=== PATIENT | female | born 1990 | race Caucasian/White ===

== ENCOUNTER 2017-02-10 11:58 | Inpatient (IN) | payer BC ==
[2017-02-10] MEDS ORDERED: Bupivacaine 0.25% 10 ML SDV ONE (12:00)
[2017-02-10] MEDS ORDERED: Sodium Chloride 0.9% 10 ML Syringe FLUSH PRN (12:33)
[2017-02-10] MEDS ORDERED: Nalbuphine 20 MG/1 ML Amp IVPUSH PRN (12:33)
[2017-02-10] MEDS ORDERED: Ondansetron 4 MG/2 ML SDV IVPUSH PRN ×2 (12:33→14:28)
--- NOTE | 2017-02-10 12:37 | PCM.LDHP ---
L&D History of Present Illness - General Date of Service: 02/10/17 Admit Problem/Dx: Patient Status Order with Admit Dx/Problem 02/10/17 12:33 Patient Status [ADT] Routine Admission Diagnosis/Problem Admission Diagnosis/Problem Normal Source of Information: Patient History Limitations: Reports: No Limitations - History of Present Illness Introduction:: Patient is a 26 y/o at 38 6/7 wks who presents in labor. Contractions started earlier today. Slowly increasing in intensity. No LOF or VB. 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 12/2014 - Twin gestation. Demise of female twin at 28 weeks, known to be anomolous. Carried till 38 weeks and delivered viable male twin. 01/2017 - Current - Past Surgical History HEENT Surgical History: Reports: Other (See Below) (oral surgery) Social & Family History - Tobacco Use Smoking Status *Q: Never Smoker - Alcohol Use Alcohol Use History: No - Recreational Drug Use Recreational Drug Use: No H&P Review of Systems - Review of Systems: Review Of Systems: See Below General: Reports: No Symptoms Pulmonary: Reports: No Symptoms Cardiovascular: Reports: No Symptoms Gastrointestinal: Reports: Abdominal Pain Genitourinary: Reports: No Symptoms Musculoskeletal: Reports: No Symptoms Neurological: Reports: No Symptoms L&D Exam - Exam Exam: See Below - OB Specific Contraction Intensity: Moderate Movement: Active Heart Tones: Present Heart Tones per Min: 140 Heart Rate (FHR) Variability: Moderate (6-25 bmp) Presentation: Vertex - Greco Score Greco Score Cervix Position: Anterior Greco Score Consistency: Soft Greco Score Effacement: >80% Greco Score Dilation: > 5 cm Greco Score Infant's Station: -2 Greco Score Total: 11 - Exam General: Alert, Oriented, Cooperative Lungs: Clear to Auscultation, Normal Respiratory Effort Cardiovascular: Regular Rate, Regular Rhythm GI/Abdominal Exam: Soft, Non-Tender Genitourinary: Normal external exam Extremities: Normal Inspection Skin: Warm, Dry, Intact - Patient Data Result Diagrams: 02/10/17 12:40 - Problem List (1) 38 weeks gestation of SNOMED Code(s): 92095247 ICD Code: Z3A.38 - 38 WEEKS GESTATION OF Status: Acute Current Visit: Yes (2) GBS (group B Streptococcus carrier), +RV culture, currently SNOMED Code(s): 42925390 ICD Code: O99.820 - STREPTOCOCCUS B CARRIER STATE COMPLICATING Status: Acute Current Visit: Yes (3) Normal labor SNOMED Code(s): 20583547 ICD Code: O80 - ENCOUNTER FOR FULL-TERM UNCOMPLICATED DELIVERY; Z37.9 - OUTCOME OF DELIVERY, UNSPECIFIED Status: Acute Current Visit: Yes Problem List Initiated/Reviewed/Updated: Yes Orders Last 24hrs: Active Orders 24 hr Category Date Time Status Patient Status [ADT] Routine ADT 02/10/17 12:33 Ordered Activity as Tolerated [RC] PFP Care 02/10/17 12:33 Ordered Communication Order [RC] ASDIRECTED Care 02/10/17 12:33 Ordered Heart Tones [RC] ASDIRECTED Care 02/10/17 12:34 Ordered Notify Provider [RC] PFP Care 02/10/17 12:33 Ordered Notify Provider [RC] PRN Care 02/10/17 12:33 Ordered Peripheral IV Care [RC] . DIRECTED Care 02/10/17 12:34 Ordered Vital Signs [RC] PER UNIT ROUTINE Care 02/10/17 12:33 Ordered Regular Diet [DIET] Diet 02/10/17 Lunch Ordered CBC W/O DIFF,HEMOGRAM [HEME] Routine Lab 02/10/17 12:33 Ordered TYPE AND SCREEN [BBK] Routine Lab 02/10/17 12:33 Ordered Ampicillin 1 gm Med 02/10/17 12:45 Ordered Sodium Chloride 0.9% [Normal Saline] 100 ml IV Q4H Ampicillin 2 gm Med 02/10/17 12:33 Ordered Sodium Chloride 0.9% [Normal Saline] 100 ml IV ONETIME Lactated Ringers [Ringers, Lactated] 1,000 ml Med 02/10/17 12:45 Ordered IV ASDIRECTED Nalbuphine [Nubain] Med 02/10/17 12:33 Ordered 10 mg IVPUSH Q2H PRN Ondansetron [Zofran] Med 02/10/17 12:33 Ordered 4 mg IVPUSH Q4H PRN Oxytocin/Lactated Ringers [Pitocin in LR 10 Units/1,000 Med 02/10/17 12:45 Ordered ML] 10 unit in 1,000 ml IV .CONTINUOUS Sodium Chloride 0.9% [Saline Flush] Med 02/10/17 12:33 Ordered 10 ml FLUSH ASDIRECTED PRN Electronic Heart Tones Ext w TOCO [WOMSER] Ot 02/10/17 12:33 Ordered Routine Electronic Heart Tones Internal [WOMSER] Per Unit Ot 02/10/17 12:33 Ordered Routine Peripheral IV Insertion Adult [OM.PC] Routine Oth 02/10/17 12:33 Ordered Resuscitation Status Routine Resus Stat 02/10/17 12:33 Ordered Assessment/Plan Comment:: 26 y/o at 38 6/7 wks presents in labor * CBC and T&S * GBS positive, will start ampicillin * Pain management per patient preference * Anticipate
[2017-02-10] MEDS ORDERED: Oxytocin/Lactated Ringers 10 UNIT/1,000 ML BAG IV SCH (12:45)
[2017-02-10] MEDS: Lactated Ringers 1,000 ML IV SCH ×2 (13:05→15:31)
[2017-02-10] MEDS ORDERED: Ampicillin 2 GM in Sodium Chloride 0.9% 100 ML IV ONE (13:15)
[2017-02-10] MEDS ORDERED: ePHEDrine 50 MG/ML SDV IVPUSH PRN (14:28)
[2017-02-10] MEDS ORDERED: fentaNYL 100 MCG/2 ML SDV EPIDUR PRN (14:28)
[2017-02-10] MEDS ORDERED: Bupivacaine/fentaNYL/NS 100 ML Bag EPIDUR SCH (14:30)
--- NOTE | 2017-02-10 14:33 | PCM.PREANE ---
Preanesthetic Assessment - Anesthesia/Transfusion/Family Hx Anesthesia History: No Prior Anesthesia Family History of Anesthesia Reaction: No Transfusion History: No Prior Transfusion(s) Intubation History: Unknown - Review of Systems General: No Symptoms Pulmonary: No Symptoms Cardiovascular: No Symptoms Gastrointestinal: No Symptoms Neurological: No Symptoms Other: Reports: None - Physical Assessment NPO Status Date: 02/10/17 NPO Status Time: 13:00 Pulse: 95 O2 Sat by Pulse Oximetry: 97 Respiratory Rate: 18 Blood Pressure: 120/76 Temperature: 36.6 C Vital Signs: Last Vital Signs Temp 36.6 C 02/10/17 12:33 Pulse 95 02/10/17 12:33 Resp 18 02/10/17 12:33 BP 120/76 02/10/17 12:33 Pulse Ox 97 02/10/17 12:33 Height: 1.65 m Weight: 74.843 kg ASA Class: 2 Mental Status: Alert & Oriented x3 Airway Class: Mallampati = 2 Dentition: Reports: Normal Dentition, Caries Thyro-Mental Finger Breadths: 3 Mouth Opening Finger Breadths: 3 Lungs: Clear to Auscultation, Normal Respiratory Effort Cardiovascular: Regular Rate, Regular Rhythm, No Murmurs - Lab Values: Laboratory Last Values WBC 14.02 K/mm3 (3.98-10.04) H 02/10/17 12:40 RBC 4.65 M/mm3 (3.98-5.22) 02/10/17 12:40 Hgb 14.6 gm/L (11.2-15.7) 02/10/17 12:40 Hct 41.4 % (34.1-44.9) 02/10/17 12:40 MCV 89.0 fl (79.4-94.8) 02/10/17 12:40 MCH 31.4 pg (25.6-32.2) 02/10/17 12:40 MCHC 35.3 g/dl (32.2-35.5) 02/10/17 12:40 RDW Std Deviation 41.4 fL (36.4-46.3) 02/10/17 12:40 Plt Count 173 K/mm3 (182-369) L 02/10/17 12:40 MPV 10.4 fl (9.4-12.3) 02/10/17 12:40 Blood Type AB POSITIVE 02/10/17 12:40 Above labs reviewed and noted. 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: - CURRENT (IN HOUSE) MEDS Current Meds: Current Medications Ephedrine Sulfate (Ephedrine Sulfate) 5 mg IVPUSH ASDIRECTED PRN PRN Reason: Hypotension Fentanyl (Sublimaze) 100 mcg EPIDUR Q3H PRN PRN Reason: Pain Fentanyl/Bupivacaine HCl (Fentanyl/Bupivacaine/Ns 2 Mcg-0.125% 100 Ml) 100 ml EPIDUR ASDIRECTED [facility] Ampicillin Sodium 1 gm/ Sodium (Chloride) 100 mls @ 200 mls/hr IV Q4H P[facility]A Lactated Ringer's (Ringers, Lactated) 1,000 mls @ 100 mls/hr IV ASDIRECTED P[facility]ELA Last Admin: 02/10/17 13:05 Dose: 100 mls/hr Oxytocin/Lactated Ringer's (Pitocin In Lr 10 Units/1,000 Ml) 10 unit in 1,000 mls @ 500 mls/hr IV .CONTINUOUS P[facility]A Nalbuphine HCl (Nubain) 10 mg IVPUSH Q2H PRN PRN Reason: Pain (moderate 4-6) Ondansetron HCl (Zofran) 4 mg IVPUSH Q4H PRN PRN Reason: Nausea/Vomiting Ondansetron HCl (Zofran) 4 mg IVPUSH ONETIME PRN PRN Reason: Nausea/Vomiting Sodium Chloride (Saline Flush) 10 ml FLUSH ASDIRECTED PRN PRN Reason: Keep Vein Open Discontinued Medications Ampicillin Sodium 2 gm/ Sodium (Chloride) 100 mls @ 200 mls/hr IV ONETIME ONE Stop: 02/10/17 13:44 Last Admin: 02/10/17 13:06 Dose: 200 mls/hr
[2017-02-10] MEDS ORDERED: Ampicillin 1 GM in Sodium Chloride 0.9% 100 ML IV SCH (17:15)
--- NOTE | 2017-02-10 18:50 | PCM.DEL ---
L & D Note - General Info Date of Service: 02/10/17 - Delivery Note Labor: Spontaneous Delivery Outcome: Livebirth Delivery Method: Spontaneous Vaginal Delivery-Single Delivery Mode: Spontaneous Presentation: Right Occiput Anterior (PEDRO) Nuchal Cord: None Anesthesia Type: Epidural Amniotic Fluid Description: Clear Episiotomy Type: None Laceration: None Placenta: Intact, Spontaneous Cord: 3 Vessels Estimated Blood Loss: 250 Resuscitation Needed: Yes [place]: Bulb Syringe, Stimulated, Warmed, [place] Used, Warmer Used Score 1 min: 8 Score 5 min: 9 Delivery Comments (Free Text/Narrative):: Patient found to be complete and began pushing. With maternal pushing effort head delivered from an PEDRO presentation. No nuchal cord present. With gentle downward traction the shoulder and body delivered. Infant placed on maternal abdomen. Cord clamped and cut. Cord blood obtained. Placenta allowed time to separate. Inspection of the perineum showed no lacerations. - Patient Data Vitals - Most Recent: Last Vital Signs Temp 36.6 C 02/10/17 15:09 Pulse 95 02/10/17 15:09 Resp 18 02/10/17 15:09 BP 120/76 02/10/17 15:09 Pulse Ox 97 02/10/17 15:09 Weight - Most Recent: 74.843 kg Lab Results Last 24 Hours: Laboratory Results - last 24 hr 02/10/17 02/10/17 Range/Units 12:40 12:40 WBC 14.02 H (3.98-10.04) K/mm3 RBC 4.65 (3.98-5.22) M/mm3 Hgb 14.6 (11.2-15.7) gm/L Hct 41.4 (34.1-44.9) % MCV 89.0 (79.4-94.8) fl MCH 31.4 (25.6-32.2) pg MCHC 35.3 (32.2-35.5) g/dl RDW Std Deviation 41.4 (36.4-46.3) fL Plt Count 173 L (182-369) K/mm3 MPV 10.4 (9.4-12.3) fl Blood Type AB POSITIVE Med Orders - Current: Current Medications Ephedrine Sulfate (Ephedrine Sulfate) 5 mg IVPUSH ASDIRECTED PRN PRN Reason: Hypotension Fentanyl (Sublimaze) 100 mcg EPIDUR Q3H PRN PRN Reason: Pain Last Admin: 02/10/17 15:04 Dose: 100 mcg Fentanyl/Bupivacaine HCl (Fentanyl/Bupivacaine/Ns 2 Mcg-0.125% 100 Ml) 100 ml EPIDUR ASDIRECTED [facility] Last Admin: 02/10/17 15:03 Dose: 100 ml Ampicillin Sodium 1 gm/ Sodium (Chloride) 100 mls @ 200 mls/hr IV Q4H PAMELA Lactated Ringer's (Ringers, Lactated) 1,000 mls @ 100 mls/hr IV ASDIRECTED [facility] Last Admin: 02/10/17 15:31 Dose: 100 mls/hr Oxytocin/Lactated Ringer's (Pitocin In Lr 10 Units/1,000 Ml) 10 unit in 1,000 mls @ 500 mls/hr IV .CONTINUOUS P[facility]ELA Nalbuphine HCl (Nubain) 10 mg IVPUSH Q2H PRN PRN Reason: Pain (moderate 4-6) Ondansetron HCl (Zofran) 4 mg IVPUSH Q4H PRN PRN Reason: Nausea/Vomiting Ondansetron HCl (Zofran) 4 mg IVPUSH ONETIME PRN PRN Reason: Nausea/Vomiting Sodium Chloride (Saline Flush) 10 ml FLUSH ASDIRECTED PRN PRN Reason: Keep Vein Open Discontinued Medications Ampicillin Sodium 2 gm/ Sodium (Chloride) 100 mls @ 200 mls/hr IV ONETIME ONE Stop: 02/10/17 13:44 Last Admin: 02/10/17 13:06 Dose: 200 mls/hr - Problem List & Annotations (1) Vaginal delivery SNOMED Code(s): 089564890 Code(s): O80 - ENCOUNTER FOR FULL-TERM UNCOMPLICATED DELIVERY Status: Acute Current Visit: Yes (2) 38 weeks gestation of SNOMED Code(s): 73347594 Code(s): Z3A.38 - 38 WEEKS GESTATION OF Status: Acute Current Visit: Yes (3) GBS (group B Streptococcus carrier), +RV culture, currently SNOMED Code(s): 16462343 Code(s): O99.820 - STREPTOCOCCUS B CARRIER STATE COMPLICATING Status: Acute Current Visit: Yes (4) Normal labor SNOMED Code(s): 34363604 Code(s): O80 - ENCOUNTER FOR FULL-TERM UNCOMPLICATED DELIVERY; Z37.9 - OUTCOME OF DELIVERY, UNSPECIFIED Status: Acute Current Visit: Yes - Problem List Review Problem List Initiated/Reviewed/Updated: Yes - My Orders Last 24 Hours: My Active Orders 02/10/17 12:33 Patient Status [ADT] Routine Activity as Tolerated [RC] PFP Communication Order [RC] ASDIRECTED Notify Provider [RC] PFP Notify Provider [RC] PRN Vital Signs [RC] PER UNIT ROUTINE Nalbuphine [Nubain] 10 mg IVPUSH Q2H PRN Ondansetron [Zofran] 4 mg IVPUSH Q4H PRN Sodium Chloride 0.9% [Saline Flush] 10 ml FLUSH ASDIRECTED PRN Electronic Heart Tones Ext w TOCO [WOMSER] Routine Electronic Heart Tones Internal [WOMSER] Per Unit Routine Peripheral IV Insertion Adult [OM.PC] Routine Resuscitation Status Routine 02/10/17 12:34 Heart Tones [RC] ASDIRECTED Peripheral IV Care [RC] . DIRECTED 02/10/17 12:40 PATIENT RETYPE [BBK] Routine TYPE AND SCREEN [BBK] Routine 02/10/17 12:45 Lactated Ringers [Ringers, Lactated] 1,000 ml IV ASDIRECTED Oxytocin/Lactated Ringers [Pitocin in LR 10 Units/1,000 ML] 10 unit in 1,000 ml IV .CONTINUOUS 02/10/17 17:15 Ampicillin 1 gm Sodium Chloride 0.9% [Normal Saline] 100 ml IV Q4H 02/10/17 Lunch Regular Diet [DIET] - Assessment Assessment:: 26 y/o PPD#0 from at 38 6/7 wks - Plan Plan:: * Routine cares * Encourage breast feeding * Discharge home in 1-2 days
[2017-02-10] MEDS ORDERED: Witch Hazel Medicated Pads 100/Jar TOP PRN (19:58)
[2017-02-10] MEDS ORDERED: Docusate Sodium 100 MG Cap PO PRN (19:58)
[2017-02-10] MEDS ORDERED: Lanolin 100% Cream 7 GM Tube TOP PRN (19:58)
[2017-02-10] MEDS ORDERED: Acetaminophen 325 MG Tab PO PRN (19:58)
[2017-02-10] MEDS ORDERED: Benzocaine/Menthol 20%-0.5% Spray 56 GM Canister TOP PRN (19:58)
[2017-02-11] MEDS: Ibuprofen 600 MG Tab PO PRN ×3 (06:43→18:44)
--- NOTE | 2017-02-11 06:54 | PCM.PNPP ---
- General Info Date of Service: 02/11/17 Functional Status: Reports: Pain Controlled, Tolerating Diet, Ambulating, Urinating - Review of Systems General: Reports: No Symptoms Pulmonary: Reports: No Symptoms Cardiovascular: Reports: No Symptoms Gastrointestinal: Reports: No Symptoms Genitourinary: Reports: No Symptoms Musculoskeletal: Reports: No Symptoms - Patient Data Vital Signs - Most Recent: Last Vital Signs Temp 37.4 C 02/11/17 04:00 Pulse 79 02/11/17 04:00 Resp 14 02/11/17 04:00 BP 113/87 02/11/17 04:00 Pulse Ox 97 02/11/17 04:00 Weight - Most Recent: 74.843 kg I&O - Last 24 Hours: Intake & Output 02/10/17 02/10/17 02/11/17 14:59 22:59 06:59 Intake Total 0 Balance 0 Lab Results - Last 24 Hours: Laboratory Results - last 24 hr 02/10/17 02/10/17 Range/Units 12:40 12:40 WBC 14.02 H (3.98-10.04) K/mm3 RBC 4.65 (3.98-5.22) M/mm3 Hgb 14.6 (11.2-15.7) gm/L Hct 41.4 (34.1-44.9) % MCV 89.0 (79.4-94.8) fl MCH 31.4 (25.6-32.2) pg MCHC 35.3 (32.2-35.5) g/dl RDW Std Deviation 41.4 (36.4-46.3) fL Plt Count 173 L (182-369) K/mm3 MPV 10.4 (9.4-12.3) fl Blood Type AB POSITIVE Gel Antibody Screen Negative Med Orders - Current: Current Medications Acetaminophen (Tylenol) 650 mg PO Q4H PRN PRN Reason: mild pain or fever Benzocaine/Menthol (Dermoplast Pain Relief [place]) 0 gm TOP ASDIRECTED PRN PRN Reason: Perineal Comfort Measure Last Admin: 02/10/17 21:04 Dose: 1 spray Docusate Sodium (Colace) 100 mg PO BID PRN PRN Reason: Constipation Emollient Ointment (Lansinoh Hpa) 0 gm TOP ASDIRECTED PRN PRN Reason: Sore Nipples Ibuprofen (Motrin) 600 mg PO Q6H PRN PRN Reason: Mild pain or fever Last Admin: 02/11/17 06:43 Dose: 600 mg Witch Viridiana (Tucks) 1 pad TOP ASDIRECTED PRN PRN Reason: Hemorrhoid pain Last Admin: 02/10/17 21:04 Dose: 1 pad Discontinued Medications Ephedrine Sulfate (Ephedrine Sulfate) 5 mg IVPUSH ASDIRECTED PRN PRN Reason: Hypotension Fentanyl (Sublimaze) 100 mcg EPIDUR Q3H PRN PRN Reason: Pain Last Admin: 02/10/17 15:04 Dose: 100 mcg Fentanyl/Bupivacaine HCl (Fentanyl/Bupivacaine/Ns 2 Mcg-0.125% 100 Ml) 100 ml EPIDUR ASDIRECTED [facility]A Last Admin: 02/10/17 15:03 Dose: 100 ml Ampicillin Sodium 2 gm/ Sodium (Chloride) 100 mls @ 200 mls/hr IV ONETIME ONE Stop: 02/10/17 13:44 Last Admin: 02/10/17 13:06 Dose: 200 mls/hr Ampicillin Sodium 1 gm/ Sodium (Chloride) 100 mls @ 200 mls/hr IV Q4H PAMELA Last Admin: 02/10/17 17:00 Dose: 200 mls/hr Lactated Ringer's (Ringers, Lactated) 1,000 mls @ 100 mls/hr IV ASDIRECTED [facility]A Last Admin: 02/10/17 15:31 Dose: 100 mls/hr Oxytocin/Lactated Ringer's (Pitocin In Lr 10 Units/1,000 Ml) 10 unit in 1,000 mls @ 500 mls/hr IV .CONTINUOUS [facility] Last Admin: 02/10/17 23:16 Dose: 500 mls/hr Nalbuphine HCl (Nubain) 10 mg IVPUSH Q2H PRN PRN Reason: Pain (moderate 4-6) Ondansetron HCl (Zofran) 4 mg IVPUSH Q4H PRN PRN Reason: Nausea/Vomiting Ondansetron HCl (Zofran) 4 mg IVPUSH ONETIME PRN PRN Reason: Nausea/Vomiting Sodium Chloride (Saline Flush) 10 ml FLUSH ASDIRECTED PRN PRN Reason: Keep Vein Open - Interaction Disposition, : [place] in Room with Family Interaction: Holding Infant Feeding: Breastfed ; Nursed Well Support Person: - Recovery Exam Fundal Tone: Firm Fundal Level: At Umbilicus Fundal Placement: Midline Lochia Amount: Small Lochia Color: Rubra/Red Perineum Description: Intact, Minimal Bruising/Swelling Episiotomy/Laceration: None Bladder Status: Voiding Urinary Elimination: Voided - Exam General: Alert, Oriented, Cooperative GI/Abdominal Exam: Soft, Non-Tender Extremities: Normal Inspection Skin: Warm, Dry, Intact - Problem List & Annotations (1) 38 weeks gestation of SNOMED Code(s): 58936725 Code(s): Z3A.38 - 38 WEEKS GESTATION OF Status: Acute Current Visit: Yes (2) GBS (group B Streptococcus carrier), +RV culture, currently SNOMED Code(s): 70415909 Code(s): O99.820 - STREPTOCOCCUS B CARRIER STATE COMPLICATING Status: Acute Current Visit: Yes (3) Normal labor SNOMED Code(s): 35001615 Code(s): O80 - ENCOUNTER FOR FULL-TERM UNCOMPLICATED DELIVERY; Z37.9 - OUTCOME OF DELIVERY, UNSPECIFIED Status: Acute Current Visit: Yes (4) Vaginal delivery SNOMED Code(s): 373998615 Code(s): O80 - ENCOUNTER FOR FULL-TERM UNCOMPLICATED DELIVERY Status: Acute Current Visit: Yes - Problem List Review Problem List Initiated/Reviewed/Updated: Yes - My Orders Last 24 Hours: My Active Orders 02/10/17 12:33 Resuscitation Status Routine 02/10/17 12:34 Heart Tones [RC] ASDIRECTED Peripheral IV Care [RC] . DIRECTED 02/10/17 19:58 Activity as Tolerated [RC] PER UNIT ROUTINE Vital Signs [RC] 04,12,20 Acetaminophen [Tylenol] 650 mg PO Q4H PRN Benzocaine/Menthol [Dermoplast Pain Relief [place]] See Dose Instructions TOP ASDIRECTED PRN Docusate Sodium [Colace] 100 mg PO BID PRN Ibuprofen [Motrin] 600 mg PO Q6H PRN Lanolin [Lansinoh HPA] See Dose Instructions TOP ASDIRECTED PRN Witch Viridiana [Tucks] 1 pad TOP ASDIRECTED PRN Assess Lochia [WOMSER] Per Unit Routine Assess Uterine Involution [WOMSER] Per Unit Routine Breast Pump [WOMSER] Per Unit Routine Heat Therapy [OM.PC] PRN Ice Therapy [OM.PC] Per Unit Routine Perineal Care [OM.PC] Per Unit Routine Peripheral IV Discontinue [OM.PC] Routine Sitz Bath [OM.PC] Per Unit Routine 02/10/17 Dinner Regular Diet [DIET] 02/11/17 19:58 Heat Therapy [OM.PC] PRN - Assessment Assessment:: 26 y/o PPD#1 from at 38 6/7 wks - Plan Plan:: * Routine cares * Encourage breast feeding * Discharge home today
--- NOTE | 2017-02-11 06:55 | PCM.DCSUM1 ---
Discharge Summary - Discharge Data Discharge Date: 02/11/17 Discharge Disposition: Home, Self-Care 01 Condition: Good - Discharge Diagnosis/Problem(s) (1) Vaginal delivery SNOMED Code(s): 243022316 ICD Code: O80 - ENCOUNTER FOR FULL-TERM UNCOMPLICATED DELIVERY Status: Acute Current Visit: Yes (2) 38 weeks gestation of SNOMED Code(s): 53780439 ICD Code: Z3A.38 - 38 WEEKS GESTATION OF Status: Acute Current Visit: Yes (3) GBS (group B Streptococcus carrier), +RV culture, currently SNOMED Code(s): 15697729 ICD Code: O99.820 - STREPTOCOCCUS B CARRIER STATE COMPLICATING Status: Acute Current Visit: Yes (4) Normal labor SNOMED Code(s): 60376457 ICD Code: O80 - ENCOUNTER FOR FULL-TERM UNCOMPLICATED DELIVERY; Z37.9 - OUTCOME OF DELIVERY, UNSPECIFIED Status: Acute Current Visit: Yes - Patient Summary/Data Complications: None Consults: None Recommended Follow-up Testing/Procedures: Follow up in 2-6 weeks for a check Hospital Course: Patient is a 26 y/o at 38 6/7 wks who presented in labor. She progressed well without the need for augmentation and underwent an uncomplicated See delivery note. she did well and was discharged home on PPD#1 - Patient Instructions Diet: Regular Diet as Tolerated Activity: As Tolerated Activity, Other: Pelvic Rest for 6 weeks Driving: May Drive Today Showering/Bathing: May Shower Showering/Bathing, Other: May Bathe Notify Provider of: Fever, Increased Pain, Swelling and Redness, Drainage, Nausea and/or Vomiting - Discharge Plan Home Medications: Home Meds Docusate Sodium [Colace] 100 mg PO BID PRN cap 02/11/17 [Rx] Ibuprofen [IJD: Ibuprofen] 600 mg PO Q6H PRN tablet 02/11/17 [Rx] Patient Handouts: Vaginal Delivery, Care After Referrals: Divina Mitchell MD [Physician] - (2-6 weeks) - Discharge Summary/Plan Comment DC Time >30 min.: No - Patient Data Vitals - Most Recent: Last Vital Signs Temp 37.4 C 02/11/17 04:00 Pulse 79 02/11/17 04:00 Resp 14 02/11/17 04:00 BP 113/87 02/11/17 04:00 Pulse Ox 97 02/11/17 04:00 Weight - Most Recent: 74.843 kg I&O - Last 24 hours: Intake & Output 02/10/17 02/10/17 02/11/17 14:59 22:59 06:59 Intake Total 0 Balance 0 Lab Results - Last 24 hrs: Laboratory Results - last 24 hr 02/10/17 02/10/17 Range/Units 12:40 12:40 WBC 14.02 H (3.98-10.04) K/mm3 RBC 4.65 (3.98-5.22) M/mm3 Hgb 14.6 (11.2-15.7) gm/L Hct 41.4 (34.1-44.9) % MCV 89.0 (79.4-94.8) fl MCH 31.4 (25.6-32.2) pg MCHC 35.3 (32.2-35.5) g/dl RDW Std Deviation 41.4 (36.4-46.3) fL Plt Count 173 L (182-369) K/mm3 MPV 10.4 (9.4-12.3) fl Blood Type AB POSITIVE Gel Antibody Screen Negative Med Orders - Current: Current Medications Acetaminophen (Tylenol) 650 mg PO Q4H PRN PRN Reason: mild pain or fever Benzocaine/Menthol (Dermoplast Pain Relief [place]) 0 gm TOP ASDIRECTED PRN PRN Reason: Perineal Comfort Measure Last Admin: 02/10/17 21:04 Dose: 1 spray Docusate Sodium (Colace) 100 mg PO BID PRN PRN Reason: Constipation Emollient Ointment (Lansinoh Hpa) 0 gm TOP ASDIRECTED PRN PRN Reason: Sore Nipples Ibuprofen (Motrin) 600 mg PO Q6H PRN PRN Reason: Mild pain or fever Last Admin: 02/11/17 06:43 Dose: 600 mg Witch Viridiana (Tucks) 1 pad TOP ASDIRECTED PRN PRN Reason: Hemorrhoid pain Last Admin: 02/10/17 21:04 Dose: 1 pad Discontinued Medications Ephedrine Sulfate (Ephedrine Sulfate) 5 mg IVPUSH ASDIRECTED PRN PRN Reason: Hypotension Fentanyl (Sublimaze) 100 mcg EPIDUR Q3H PRN PRN Reason: Pain Last Admin: 02/10/17 15:04 Dose: 100 mcg Fentanyl/Bupivacaine HCl (Fentanyl/Bupivacaine/Ns 2 Mcg-0.125% 100 Ml) 100 ml EPIDUR ASDIRECTED [facility] Last Admin: 02/10/17 15:03 Dose: 100 ml Ampicillin Sodium 2 gm/ Sodium (Chloride) 100 mls @ 200 mls/hr IV ONETIME ONE Stop: 02/10/17 13:44 Last Admin: 02/10/17 13:06 Dose: 200 mls/hr Ampicillin Sodium 1 gm/ Sodium (Chloride) 100 mls @ 200 mls/hr IV Q4H [facility] Last Admin: 02/10/17 17:00 Dose: 200 mls/hr Lactated Ringer's (Ringers, Lactated) 1,000 mls @ 100 mls/hr IV ASDIRECTED [facility] Last Admin: 02/10/17 15:31 Dose: 100 mls/hr Oxytocin/Lactated Ringer's (Pitocin In Lr 10 Units/1,000 Ml) 10 unit in 1,000 mls @ 500 mls/hr IV .CONTINUOUS [facility] Last Admin: 02/10/17 23:16 Dose: 500 mls/hr Nalbuphine HCl (Nubain) 10 mg IVPUSH Q2H PRN PRN Reason: Pain (moderate 4-6) Ondansetron HCl (Zofran) 4 mg IVPUSH Q4H PRN PRN Reason: Nausea/Vomiting Ondansetron HCl (Zofran) 4 mg IVPUSH ONETIME PRN PRN Reason: Nausea/Vomiting Sodium Chloride (Saline Flush) 10 ml FLUSH ASDIRECTED PRN PRN Reason: Keep Vein Open *Q Meaningful Use (DIS) - VTE *Q VTE Criteria *Q: - Stroke *Q Stroke Criteria *Q: - AMI *Q AMI Criteria *Q:
--- NOTE | 2017-02-11 13:45 | PCM48HPAN ---
Post Anesthesia Note - EVALUATION WITHIN 48HRS OF ANESTHETIC Vital Signs in Normal Range: Yes Patient Participated in Evaluation: Yes Respiratory Function Stable: Yes Airway Patent: Yes Cardiovascular Function Stable: Yes Hydration Status Stable: Yes Pain Control Satisfactory: Yes Nausea and Vomiting Control Satisfactory: Yes Mental Status Recovered: Yes - COMMENTS/OBSERVATIONS Free Text/Narrative:: No concerns related to epidural. Patient happy with epidural.
== END 2017-02-11 18:52 | disposition home or self-care (01) | DRG 560 ==
LOC: JD.OB 11:58 → JD.OBCHECK 11:58 → JD.OB 11:59 → JD.OBCHECK 12:32 → JD.OB 12:33 → MERGE 18:30 → OBSVTOIN 18:30
PROVIDERS: ADMIT Obstetrics & Gynecology; ATTEND Obstetrics & Gynecology
PROC: 10E0XZZ Delivery of Products of Conception, External Approach (ICD-10-PCS; principal; 2017-02-10)
PROC: 3E0R3BZ Introduction of Anesthetic Agent into Spinal Canal, Percutaneous Approach (ICD-10-PCS; 2017-02-10)
PROC: 00HU33Z Insertion of Infusion Device into Spinal Canal, Percutaneous Approach (ICD-10-PCS; 2017-02-10)
DX: O99.824 Streptococcus B carrier state complicating childbirth (principal); Z37.0 Single live birth; Z3A.39 39 weeks gestation of pregnancy
CPT/HCPCS: 36415; 59409; 85027; 86850; 86900; 86901; A9270-GY; J0290; J2590; J3010; J7030; J7120

== ENCOUNTER 2019-05-09 13:53 | Inpatient (IN) | payer BC ==
[~2019-05-09 13:53] MED LIST: Lidocaine 1.5% with EPINEPHrine 1:200,000 5 ML Amp ONE
[2019-05-09] MEDS ORDERED: Sodium Chloride 0.9% 10 ML Syringe FLUSH PRN (14:27)
[2019-05-09] MEDS ORDERED: Ondansetron 4 MG/2 ML SDV IVPUSH PRN (14:27)
[2019-05-09] MEDS ORDERED: Oxytocin/Lactated Ringers 10 UNIT/1,000 ML BAG IV SCH (14:45)
[2019-05-09] MEDS: Lactated Ringers 1,000 ML IV SCH ×2 (14:49→15:11)
[2019-05-09] MEDS ORDERED: fentaNYL 100 MCG/2 ML SDV EPIDUR PRN (15:02)
[2019-05-09] MEDS ORDERED: Bupivacaine/fentaNYL/NS 100 ML Bag EPIDUR PRN (15:02)
[2019-05-09] MEDS ORDERED: diphenhydrAMINE 50 MG/ML SDV IVPUSH PRN (15:02)
[2019-05-09] MEDS ORDERED: ePHEDrine 50 MG/ML SDV IVPUSH PRN (15:02)
--- NOTE | 2019-05-09 15:10 | PCM.PREANE ---
Preanesthetic Assessment - Anesthesia/Transfusion/Family Hx Anesthesia History: No Prior Anesthesia Transfusion History: No Prior Transfusion(s) Intubation History: Unknown - Review of Systems General: No Symptoms Pulmonary: No Symptoms Cardiovascular: No Symptoms Gastrointestinal: No Symptoms Neurological: No Symptoms Other: Reports: None - Physical Assessment NPO Status Date: 05/09/19 NPO Status Time: 12:00 Vital Signs: Last Vital Signs Temp 98.5 F 05/09/19 14:34 Pulse 92 05/09/19 14:34 Resp 16 05/09/19 14:34 BP 122/77 05/09/19 14:34 Pulse Ox 100 05/09/19 14:34 Height: 1.65 m Weight: 74.661 kg ASA Class: 2 Mental Status: Alert & Oriented x3 Airway Class: Mallampati = 2 Dentition: Reports: Normal Dentition Thyro-Mental Finger Breadths: 3 Mouth Opening Finger Breadths: 3 ROM/Head Extension: Full Lungs: Clear to Auscultation, Normal Respiratory Effort Cardiovascular: Regular Rate, Regular Rhythm - Lab Values: Laboratory Last Values WBC 20.19 K/mm3 (3.98-10.04) H 05/09/19 14:40 RBC 4.45 M/mm3 (3.98-5.22) 05/09/19 14:40 Hgb 13.9 gm/dl (11.2-15.7) 05/09/19 14:40 Hct 38.9 % (34.1-44.9) 05/09/19 14:40 MCV 87.4 fl (79.4-94.8) 05/09/19 14:40 MCH 31.2 pg (25.6-32.2) 05/09/19 14:40 MCHC 35.7 g/dl (32.2-35.5) H 05/09/19 14:40 RDW Std Deviation 39.6 fL (36.4-46.3) 05/09/19 14:40 Plt Count 209 K/mm3 (182-369) 05/09/19 14:40 MPV 9.9 fl (9.4-12.3) 05/09/19 14:40 Neut % (Auto) 82.6 % (34.0-71.1) H 05/09/19 14:40 Lymph % (Auto) 11.0 % (19.3-51.7) L 05/09/19 14:40 [place] % (Auto) 5.5 % (4.7-12.5) 05/09/19 14:40 Eos % (Auto) 0.3 (0.7-5.8) L 05/09/19 14:40 Baso % (Auto) 0.2 % (0.1-1.2) 05/09/19 14:40 Neut # (Auto) 16.67 K/mm3 (1.56-6.13) H 05/09/19 14:40 Lymph # (Auto) 2.22 K/mm3 (1.18-3.74) 05/09/19 14:40 [place] # (Auto) 1.11 K/mm3 (0.24-0.36) H 05/09/19 14:40 Eos # (Auto) 0.07 K/mm3 (0.04-0.36) 05/09/19 14:40 Baso # (Auto) 0.04 K/mm3 (0.01-0.08) 05/09/19 14:40 Manual Slide Review Abnormal smear 05/09/19 14:40 - Allergies Allergies/Adverse Reactions: Allergies Allergy/AdvReac Type Severity Reaction Status Date / Time No Known Allergies Allergy Verified 04/23/19 09:26 - Acknowledgements Anesthesia Type Planned: Epidural Pt an Appropriate Candidate for the Planned Anesthesia: Yes Alternatives and Risks of Anesthesia Discussed w Pt/Guardian: Yes Pt/Guardian Understands and Agrees with Anesthesia Plan: Yes PreAnesthesia Questionnaire [employer] History: Reports: Other OB/BYN History: 06/2013 - SAB. 12/2014 - Twin gestation. Demise of female twin at 28 weeks, known to be anomolous. Carried till 38 weeks and delivered viable male twin. 01/2017 - Current - Past Surgical History HEENT Surgical History: Reports: Other (See Below) (oral surgery) - HOME MEDS Home Medications: Home Meds Docusate Sodium [Colace] 100 mg PO BID PRN cap 02/11/17 [Rx] Pnv No.95/Ferrous Fum/Folic AC [ Vitamin Tablet] 1 each PO DAILY [History] - CURRENT (IN HOUSE) MEDS Current Meds: Current Medications Diphenhydramine HCl (Benadryl) 25 mg IVPUSH Q6H PRN PRN Reason: pruritis Ephedrine Sulfate (Ephedrine Sulfate) 5 mg IVPUSH ASDIRECTED PRN PRN Reason: Hypotension Fentanyl (Sublimaze) 100 mcg EPIDUR Q3H PRN PRN Reason: Pain Fentanyl/Bupivacaine HCl (Fentanyl/Bupivacaine/Ns 2 Mcg-0.125% 100 Ml) 100 ml EPIDUR ASDIRECTED PRN PRN Reason: Pain Lactated Ringer's (Ringers, Lactated) 1,000 mls @ 100 mls/hr IV ASDIRECTED PAMELA Last Admin: 05/09/19 14:49 Dose: 999 mls/hr Oxytocin/Lactated Ringer's (Pitocin In Lr 10 Units/1,000 Ml) 10 unit in 1,000 mls @ 12 mls/hr IV TITRATE PAMELA; Protocol Ondansetron HCl (Zofran) 4 mg IVPUSH Q4H PRN PRN Reason: Nausea/Vomiting Sodium Chloride (Saline Flush) 10 ml FLUSH ASDIRECTED PRN PRN Reason: Keep Vein Open
--- NOTE | 2019-05-09 17:54 | PCM.LDHP ---
L&D History of Present Illness - General Date of Service: 05/09/19 Admit Problem/Dx: Patient Status Order with Admit Dx/Problem 05/09/19 14:27 Patient Status [ADT] Routine Admission Diagnosis/Problem Admission Diagnosis/Problem Source of Information: Patient History Limitations: Reports: No Limitations - History of Present Illness Introduction:: Patient is a 28 y/o at 39 1/7 wks who presents in labor. Contractions started yesterday PM and picked up throughout the day. Currently comfortable with her epidural in place Pain Score: 6 - Related Data Allergies/Adverse Reactions: Allergies Allergy/AdvReac Type Severity Reaction Status Date / Time No Known Allergies Allergy Verified 04/23/19 09:26 Home Medications: Home Meds Pnv No.95/Ferrous Fum/Folic AC [ Vitamin Tablet] 1 each PO DAILY [History] Past Medical History [employer] History: Reports: : 4 Para: 2 (2 living children) LMP (Approximate): Other OB/BYN History: 06/2013 - SAB. 12/2014 - Twin gestation. Demise of female twin at 28 weeks, known to be affected by several anomolies Carried till 38 weeks and delivered viable male twin. 01/2017 - Delivered 38 weeks - Past Surgical History HEENT Surgical History: Reports: Other (See Below) (oral surgery) Social & Family History - Family History Family Medical History: Noncontributory - Tobacco Use Smoking Status *Q: Never Smoker Second Hand Smoke Exposure: No - Caffeine Use Caffeine Use: Reports: None - Alcohol Use Alcohol Use History: No - Recreational Drug Use Recreational Drug Use: No H&P Review of Systems - Review of Systems: Review Of Systems: See Below General: Reports: No Symptoms Pulmonary: Reports: No Symptoms Cardiovascular: Reports: No Symptoms Gastrointestinal: Reports: No Symptoms Genitourinary: Reports: No Symptoms Musculoskeletal: Reports: No Symptoms Psychiatric: Reports: No Symptoms Neurological: Reports: No Symptoms L&D Exam - Exam Exam: See Below - Vital Signs Vital Signs: Last Vital Signs Temp 36.9 C 05/09/19 14:34 Pulse 92 05/09/19 14:34 Resp 16 05/09/19 14:34 BP 122/77 05/09/19 14:34 Pulse Ox 100 05/09/19 14:34 Weight: 74.661 kg - OB Specific Contraction Intensity: Moderate to Strong Movement: Active Heart Tones: Present Heart Tones per Min: 115 Heart Rate (FHR) Variability: Moderate (6-25 bmp) Presentation: Vertex - Greco Score Greco Score Cervix Position: Anterior Greco Score Consistency: Soft Greco Score Effacement: >80% Greco Score Dilation: > 5 cm Greco Score 's Station: -2 Greco Score Total: 11 - Exam General: Alert, Oriented, Cooperative Lungs: Clear to Auscultation, Normal Respiratory Effort Cardiovascular: Regular Rate, Regular Rhythm GI/Abdominal Exam: Soft, Non-Tender Genitourinary: Normal external exam Extremities: Normal Inspection Skin: Warm, Dry, Intact - Patient Data Lab Results Last 24 hrs: Laboratory Results - last 24 hr 05/09/19 Range/Units 14:40 WBC 20.19 H (3.98-10.04) K/mm3 RBC 4.45 (3.98-5.22) M/mm3 Hgb 13.9 (11.2-15.7) gm/dl Hct 38.9 (34.1-44.9) % MCV 87.4 (79.4-94.8) fl MCH 31.2 (25.6-32.2) pg MCHC 35.7 H (32.2-35.5) g/dl RDW Std Deviation 39.6 (36.4-46.3) fL Plt Count 209 (182-369) K/mm3 MPV 9.9 (9.4-12.3) fl Neut % (Auto) 82.6 H (34.0-71.1) % Lymph % (Auto) 11.0 L (19.3-51.7) % [place] % (Auto) 5.5 (4.7-12.5) % Eos % (Auto) 0.3 L (0.7-5.8) Baso % (Auto) 0.2 (0.1-1.2) % Neut # (Auto) 16.67 H (1.56-6.13) K/mm3 Lymph # (Auto) 2.22 (1.18-3.74) K/mm3 [place] # (Auto) 1.11 H (0.24-0.36) K/mm3 Eos # (Auto) 0.07 (0.04-0.36) K/mm3 Baso # (Auto) 0.04 (0.01-0.08) K/mm3 Manual Slide Review Abnormal smear Result Diagrams: 05/09/19 14:40 - Problem List (1) 39 weeks gestation of SNOMED Code(s): 48340949 ICD Code: Z3A.39 - 39 WEEKS GESTATION OF Status: Acute Current Visit: Yes Problem List Initiated/Reviewed/Updated: Yes Orders Last 24hrs: Active Orders 24 hr Category Date Time Status Patient Status [ADT] Routine ADT 05/09/19 14:27 Active Activity as Tolerated [RC] PFP Care 05/09/19 14:27 Active Communication Order [RC] ASDIRECTED Care 05/09/19 14:27 Active Heart Tones [RC] ASDIRECTED Care 05/09/19 14:28 Active Non Stress Test [RC] PER UNIT ROUTINE Care 05/09/19 14:27 Active Notify Provider [RC] ASDIRECTED Care 05/09/19 15:02 Active Notify Provider [RC] PFP Care 05/09/19 14:27 Active Notify Provider [RC] PRN Care 05/09/19 14:27 Active Peripheral IV Care [RC] . DIRECTED Care 05/09/19 14:28 Active Pump Management, Intrathecal [RC] ASDIRECTED Care 05/09/19 14:29 Active Urinary Catheter Assessment [RC] ASDIRECTED Care 05/09/19 14:27 Active Vital Signs [RC] PER UNIT ROUTINE Care 05/09/19 14:27 Active Regular Diet [DIET] Diet 05/09/19 Dinner Active RAPID PLASMA REAGIN,RPR [CHEM] Routine Lab 05/09/19 14:40 Received TYPE AND SCREEN [BBK] Stat Lab 05/09/19 14:40 Received Bupivacaine/fentaNYL/NS [fentaNYL/Bupivacaine/NS 2 MCG- Med 05/09/19 15:02 Active 0.125% 100 ML] 100 ml EPIDUR ASDIRECTED PRN Lactated Ringers [Ringers, Lactated] 1,000 ml Med 05/09/19 14:30 Active IV ASDIRECTED Ondansetron [Zofran] Med 05/09/19 14:27 Active 4 mg IVPUSH Q4H PRN Oxytocin/Lactated Ringers [Pitocin in LR 10 Units/1,000 Med 05/09/19 14:45 Active ML] 10 unit in 1,000 ml IV TITRATE Sodium Chloride 0.9% [Saline Flush] Med 05/09/19 14:27 Active 10 ml FLUSH ASDIRECTED PRN diphenhydrAMINE [Benadryl] Med 05/09/19 15:02 Active 25 mg IVPUSH Q6H PRN ePHEDrine [ePHEDrine sulfate] Med 05/09/19 15:02 Active 5 mg IVPUSH ASDIRECTED PRN fentaNYL [Sublimaze] Med 05/09/19 15:02 Active 100 mcg EPIDUR Q3H PRN Electronic Heart Tones Ext w TOCO [WOMSER] Oth 05/09/19 14:27 Ordered Routine Electronic Heart Tones Internal [WOMSER] Per Unit Oth 05/09/19 14:27 Ordered Routine Peripheral IV Insertion Adult [OM.PC] Routine Ot 05/09/19 14:27 Ordered Resuscitation Status Routine Resus Stat 05/09/19 14:27 Ordered Medication Orders Diphenhydramine HCl (Benadryl) 25 mg IVPUSH Q6H PRN PRN Reason: pruritis Ephedrine Sulfate (Ephedrine Sulfate) 5 mg IVPUSH ASDIRECTED PRN PRN Reason: Hypotension Fentanyl (Sublimaze) 100 mcg EPIDUR Q3H PRN PRN Reason: Pain Last Admin: 05/09/19 15:07 Dose: 100 mcg Fentanyl/Bupivacaine HCl (Fentanyl/Bupivacaine/Ns 2 Mcg-0.125% 100 Ml) 100 ml EPIDUR ASDIRECTED PRN PRN Reason: Pain Last Admin: 05/09/19 15:08 Dose: 100 ml Lactated Ringer's (Ringers, Lactated) 1,000 mls @ 100 mls/hr IV ASDIRECTED PAMELA Last Admin: 05/09/19 15:11 Dose: 999 mls/hr Infusion: 05/09/19 15:11 Dose: 999 mls/hr Admin: 05/09/19 14:49 Dose: 999 mls/hr Oxytocin/Lactated Ringer's (Pitocin In Lr 10 Units/1,000 Ml) 10 unit in 1,000 mls @ 12 mls/hr IV TITRATE PAMELA; Protocol Ondansetron HCl (Zofran) 4 mg IVPUSH Q4H PRN PRN Reason: Nausea/Vomiting Sodium Chloride (Saline Flush) 10 ml FLUSH ASDIRECTED PRN PRN Reason: Keep Vein Open Assessment/Plan Comment:: 28 y/o at 39 1/7 wks presents in labor * Labs done * GBS negative, no need for antibiotics * Comfortable with epidural in place * AROM just performed, 8 cm dilated * Anticipate
--- NOTE | 2019-05-09 19:24 | PCM.DEL ---
L & D Note - General Info Date of Service: 05/09/19 - Delivery Note Labor: Spontaneous Delivery Outcome: Livebirth Delivery Method: Spontaneous Vaginal Delivery-Single Delivery Mode: Spontaneous Presentation: Right Occiput Anterior (PEDRO) Nuchal Cord: Present (tight, not reduced) Anesthesia Type: Epidural Amniotic Fluid Description: Clear Episiotomy Type: None Laceration: None Placenta: Intact, Spontaneous Cord: 3 Vessels Estimated Blood Loss: 200 Resuscitation Needed: Yes [place]: Bulb Syringe, Stimulated, Warmed, [place] Used, Warmer Used Delivery Comments (Free Text/Narrative):: Patient found to be complete and began pushing. With maternal pushing effort head delivered from an PEDRO presentation. Nuchal cord present, but tight and so not reduced. With gentle downward traction the shoulders and body delivered. Infant placed on maternal abdomen. Cord clamped and cut. Cord blood obtained. Placenta allowed time to separate and expelled intact. Inspection of the perineum showed no lacerations - General Info Date of Service: 05/09/19 - Patient Data Vitals - Most Recent: Last Vital Signs Temp 36.9 C 05/09/19 14:34 Pulse 92 05/09/19 14:34 Resp 16 05/09/19 14:34 BP 122/77 05/09/19 14:34 Pulse Ox 100 05/09/19 14:34 Weight - Most Recent: 74.661 kg I&O - Last 24 Hours: Intake & Output 05/09/19 05/09/19 05/09/19 06:59 14:59 22:59 Intake Total 1060 Balance 1060 Lab Results Last 24 Hours: Laboratory Results - last 24 hr 05/09/19 Range/Units 14:40 WBC 20.19 H (3.98-10.04) K/mm3 RBC 4.45 (3.98-5.22) M/mm3 Hgb 13.9 (11.2-15.7) gm/dl Hct 38.9 (34.1-44.9) % MCV 87.4 (79.4-94.8) fl MCH 31.2 (25.6-32.2) pg MCHC 35.7 H (32.2-35.5) g/dl RDW Std Deviation 39.6 (36.4-46.3) fL Plt Count 209 (182-369) K/mm3 MPV 9.9 (9.4-12.3) fl Neut % (Auto) 82.6 H (34.0-71.1) % Lymph % (Auto) 11.0 L (19.3-51.7) % [place] % (Auto) 5.5 (4.7-12.5) % Eos % (Auto) 0.3 L (0.7-5.8) Baso % (Auto) 0.2 (0.1-1.2) % Neut # (Auto) 16.67 H (1.56-6.13) K/mm3 Lymph # (Auto) 2.22 (1.18-3.74) K/mm3 [place] # (Auto) 1.11 H (0.24-0.36) K/mm3 Eos # (Auto) 0.07 (0.04-0.36) K/mm3 Baso # (Auto) 0.04 (0.01-0.08) K/mm3 Manual Slide Review Abnormal smear Med Orders - Current: Current Medications Diphenhydramine HCl (Benadryl) 25 mg IVPUSH Q6H PRN PRN Reason: pruritis Ephedrine Sulfate (Ephedrine Sulfate) 5 mg IVPUSH ASDIRECTED PRN PRN Reason: Hypotension Fentanyl (Sublimaze) 100 mcg EPIDUR Q3H PRN PRN Reason: Pain Last Admin: 05/09/19 15:07 Dose: 100 mcg Fentanyl/Bupivacaine HCl (Fentanyl/Bupivacaine/Ns 2 Mcg-0.125% 100 Ml) 100 ml EPIDUR ASDIRECTED PRN PRN Reason: Pain Last Admin: 05/09/19 15:08 Dose: 100 ml Lactated Ringer's (Ringers, Lactated) 1,000 mls @ 100 mls/hr IV ASDIRECTED PAMELA Last Admin: 05/09/19 15:11 Dose: 999 mls/hr Oxytocin/Lactated Ringer's (Pitocin In Lr 10 Units/1,000 Ml) 10 unit in 1,000 mls @ 12 mls/hr IV TITRATE PAMELA; Protocol Last Admin: 05/09/19 19:13 Dose: 500 mls/hr Ondansetron HCl (Zofran) 4 mg IVPUSH Q4H PRN PRN Reason: Nausea/Vomiting Sodium Chloride (Saline Flush) 10 ml FLUSH ASDIRECTED PRN PRN Reason: Keep Vein Open - Problem List & Annotations (1) 39 weeks gestation of SNOMED Code(s): 70839407 Code(s): Z3A.39 - 39 WEEKS GESTATION OF Status: Acute Current Visit: Yes (2) Vaginal delivery SNOMED Code(s): 283396215 Code(s): O80 - ENCOUNTER FOR FULL-TERM UNCOMPLICATED DELIVERY Status: Acute Current Visit: No - Problem List Review Problem List Initiated/Reviewed/Updated: Yes - My Orders Last 24 Hours: My Active Orders 05/09/19 14:27 Patient Status [ADT] Routine Activity as Tolerated [RC] PFP Communication Order [RC] ASDIRECTED Non Stress Test [RC] PER UNIT ROUTINE Notify Provider [RC] PFP Notify Provider [RC] PRN Urinary Catheter Assessment [RC] ASDIRECTED Vital Signs [RC] PER UNIT ROUTINE Ondansetron [Zofran] 4 mg IVPUSH Q4H PRN Sodium Chloride 0.9% [Saline Flush] 10 ml FLUSH ASDIRECTED PRN Electronic Heart Tones Ext w TOCO [WOMSER] Routine Electronic Heart Tones Internal [WOMSER] Per Unit Routine Peripheral IV Insertion Adult [OM.PC] Routine Resuscitation Status Routine 05/09/19 14:28 Heart Tones [RC] ASDIRECTED Peripheral IV Care [RC] . DIRECTED 05/09/19 14:29 Pump Management, Intrathecal [RC] ASDIRECTED 05/09/19 14:30 Lactated Ringers [Ringers, Lactated] 1,000 ml IV ASDIRECTED 05/09/19 14:40 RAPID PLASMA REAGIN,RPR [CHEM] Routine TYPE AND SCREEN [BBK] Stat 05/09/19 14:45 Oxytocin/Lactated Ringers [Pitocin in LR 10 Units/1,000 ML] 10 unit in 1,000 ml IV TITRATE 05/09/19 Dinner Regular Diet [DIET] - Assessment Assessment:: PPD#0 - Plan Plan:: * Routine cares * Breast feeding * Discharge home in 1-2 days
[2019-05-09] MEDS ORDERED: Acetaminophen 325 MG Tab PO PRN (20:02)
[2019-05-09] MEDS ORDERED: Witch Hazel Medicated Pads 40/Jar TOP PRN (20:02)
[2019-05-09] MEDS ORDERED: Docusate Sodium 100 MG Cap PO PRN (20:02)
[2019-05-09] MEDS ORDERED: Benzocaine/Menthol 20%-0.5% Spray 56 GM Canister TOP PRN (20:02)
[2019-05-09] MEDS: Ibuprofen 600 MG Tab PO PRN (23:02)
[2019-05-10] MEDS: Ibuprofen 600 MG Tab PO PRN ×3 (04:19→16:50)
--- NOTE | 2019-05-10 09:03 | PCM.PNPP ---
- General Info Date of Service: 05/10/19 Functional Status: Reports: Pain Controlled, Tolerating Diet, Ambulating, Urinating - Review of Systems General: Reports: No Symptoms Pulmonary: Reports: No Symptoms Cardiovascular: Reports: No Symptoms Gastrointestinal: Reports: No Symptoms Genitourinary: Reports: No Symptoms Musculoskeletal: Reports: No Symptoms - Patient Data Vital Signs - Most Recent: Last Vital Signs Temp 36.9 C 05/10/19 03:54 Pulse 79 05/10/19 08:10 Resp 14 05/10/19 08:10 BP 119/73 05/10/19 08:10 Pulse Ox 97 05/10/19 08:10 Weight - Most Recent: 74.661 kg I&O - Last 24 Hours: Intake & Output 05/09/19 05/10/19 05/10/19 22:59 06:59 14:59 Intake Total 2059 Balance 2059 Lab Results - Last 24 Hours: Laboratory Results - last 24 hr 05/09/19 05/09/19 05/09/19 Range/Units 14:40 14:40 14:40 WBC 20.19 H (3.98-10.04) K/mm3 RBC 4.45 (3.98-5.22) M/mm3 Hgb 13.9 (11.2-15.7) gm/dl Hct 38.9 (34.1-44.9) % MCV 87.4 (79.4-94.8) fl MCH 31.2 (25.6-32.2) pg MCHC 35.7 H (32.2-35.5) g/dl RDW Std Deviation 39.6 (36.4-46.3) fL Plt Count 209 (182-369) K/mm3 MPV 9.9 (9.4-12.3) fl Neut % (Auto) 82.6 H (34.0-71.1) % Lymph % (Auto) 11.0 L (19.3-51.7) % [place] % (Auto) 5.5 (4.7-12.5) % Eos % (Auto) 0.3 L (0.7-5.8) Baso % (Auto) 0.2 (0.1-1.2) % Neut # (Auto) 16.67 H (1.56-6.13) K/mm3 Lymph # (Auto) 2.22 (1.18-3.74) K/mm3 [place] # (Auto) 1.11 H (0.24-0.36) K/mm3 Eos # (Auto) 0.07 (0.04-0.36) K/mm3 Baso # (Auto) 0.04 (0.01-0.08) K/mm3 Manual Slide Review Abnormal smear RPR Non-reactive (NONREACTIVE) Blood Type AB POSITIVE Med Orders - Current: Current Medications Acetaminophen (Tylenol) 650 mg PO Q4H PRN PRN Reason: mild pain or fever Last Admin: 05/10/19 08:34 Dose: 650 mg Benzocaine/Menthol (Dermoplast Pain Relief Sabina) 0 gm TOP ASDIRECTED PRN PRN Reason: Perineal Comfort Measure Docusate Sodium (Colace) 100 mg PO BID PRN PRN Reason: Constipation Last Admin: 05/10/19 08:39 Dose: 100 mg Ibuprofen (Motrin) 600 mg PO Q6H PRN PRN Reason: Mild pain or fever Last Admin: 05/10/19 04:19 Dose: 600 mg Witch David (Tucks) 1 pad TOP ASDIRECTED PRN PRN Reason: Perineal Comfort Measure Last Admin: 05/09/19 20:36 Dose: 1 carton Discontinued Medications Diphenhydramine HCl (Benadryl) 25 mg IVPUSH Q6H PRN PRN Reason: pruritis Ephedrine Sulfate (Ephedrine Sulfate) 5 mg IVPUSH ASDIRECTED PRN PRN Reason: Hypotension Fentanyl (Sublimaze) 100 mcg EPIDUR Q3H PRN PRN Reason: Pain Last Admin: 05/09/19 15:07 Dose: 100 mcg Fentanyl/Bupivacaine HCl (Fentanyl/Bupivacaine/Ns 2 Mcg-0.125% 100 Ml) 100 ml EPIDUR ASDIRECTED PRN PRN Reason: Pain Last Admin: 05/09/19 15:08 Dose: 100 ml Lactated Ringer's (Ringers, Lactated) 1,000 mls @ 100 mls/hr IV ASDIRECTED PAMELA Last Admin: 05/09/19 15:11 Dose: 999 mls/hr Oxytocin/Lactated Ringer's (Pitocin In Lr 10 Units/1,000 Ml) 10 unit in 1,000 mls @ 12 mls/hr IV TITRATE PAMELA; Protocol Last Admin: 05/09/19 19:13 Dose: 500 mls/hr Ondansetron HCl (Zofran) 4 mg IVPUSH Q4H PRN PRN Reason: Nausea/Vomiting Sodium Chloride (Saline Flush) 10 ml FLUSH ASDIRECTED PRN PRN Reason: Keep Vein Open - Interaction Infant Disposition, : [place] in Room with Family Interaction: Holding Infant Infant Feeding: Breastfed ; Nursed Well Support Person: - Recovery Exam Fundal Tone: Firm Fundal Level: At Umbilicus Fundal Placement: Midline Lochia Amount: Small Perineum Description: Intact, Minimal Bruising/Swelling Bladder Status: Voiding - Exam General: Alert, Oriented, Cooperative GI/Abdominal Exam: Soft, Non-Tender Extremities: Normal Inspection Skin: Warm, Dry, Intact - Problem List & Annotations (1) 39 weeks gestation of SNOMED Code(s): 80068464 Code(s): Z3A.39 - 39 WEEKS GESTATION OF Status: Acute Current Visit: Yes (2) Vaginal delivery SNOMED Code(s): 816536371 Code(s): O80 - ENCOUNTER FOR FULL-TERM UNCOMPLICATED DELIVERY Status: Acute Current Visit: No - Problem List Review Problem List Initiated/Reviewed/Updated: Yes - My Orders Last 24 Hours: My Active Orders 05/09/19 14:27 Resuscitation Status Routine 05/09/19 14:28 Heart Tones [RC] ASDIRECTED 05/09/19 14:40 TYPE AND SCREEN [BBK] Stat 05/09/19 20:02 Activity as Tolerated [RC] Q12H Vital Signs [RC] 03,09,15,21 Acetaminophen [Tylenol] 650 mg PO Q4H PRN Benzocaine/Menthol [Dermoplast Pain Relief Sabina] See Dose Instructions TOP ASDIRECTED PRN Docusate Sodium [Colace] 100 mg PO BID PRN Ibuprofen [Motrin] 600 mg PO Q6H PRN witch David [Tucks] 1 pad TOP ASDIRECTED PRN Assess Lochia [WOMSER] Per Unit Routine Assess Uterine Involution [WOMSER] Per Unit Routine Breast Pump [WOMSER] Per Unit Routine Heat Therapy [OM.PC] PRN Ice Therapy [OM.PC] Per Unit Routine Perineal Care [OM.PC] Per Unit Routine Peripheral IV Discontinue [OM.PC] Routine Sitz Bath [OM.PC] Per Unit Routine 05/09/19 Dinner Regular Diet [DIET] 05/10/19 20:02 Heat Therapy [OM.PC] PRN - Assessment Assessment:: PPD#1 - Plan Plan:: * Routine cares * Breast feeding * Discharge home today vs tomorrow depending upon home care coordinator preference
--- NOTE | 2019-05-10 09:22 | PCM48HPAN ---
Post Anesthesia Note - EVALUATION WITHIN 48HRS OF ANESTHETIC Vital Signs in Normal Range: Yes Patient Participated in Evaluation: Yes Respiratory Function Stable: Yes Airway Patent: Yes Cardiovascular Function Stable: Yes Hydration Status Stable: Yes Pain Control Satisfactory: Yes Nausea and Vomiting Control Satisfactory: Yes Mental Status Recovered: Yes Vital Signs: Last Vital Signs Temp 36.9 C 05/10/19 03:54 Pulse 79 05/10/19 08:10 Resp 14 05/10/19 08:10 BP 119/73 05/10/19 08:10 Pulse Ox 97 05/10/19 08:10
--- NOTE | 2019-05-11 06:59 | PCM.DCSUM1 ---
Discharge Summary - Discharge Data Discharge Date: 05/10/19 Discharge Disposition: Home, Self-Care 01 Condition: Good - Referral to Home Health Primary Care Physician: Divina Mitchell MD - Discharge Diagnosis/Problem(s) (1) 39 weeks gestation of SNOMED Code(s): 83157977 ICD Code: Z3A.39 - 39 WEEKS GESTATION OF Status: Acute (2) Vaginal delivery SNOMED Code(s): 324588189 ICD Code: O80 - ENCOUNTER FOR FULL-TERM UNCOMPLICATED DELIVERY Status: Acute - Patient Summary/Data Complications: None Consults: None Recommended Follow-up Testing/Procedures: Follow up in 3 weeks for post check Hospital Course: Patient is a 28 y/o who presented at 39 1/7 wks in labor. She progressed well and underwent an uncomplicated . See delivery note. she did well and was discharged home on PPD#1 - Patient Instructions Diet: Regular Diet as Tolerated Activity: As Tolerated Activity, Other: Pelvic Rest for 6 weeks Driving: May Drive Today Showering/Bathing: May Shower Showering/Bathing, Other: May Bathe Notify Provider of: Fever, Increased Pain, Swelling and Redness, Drainage, Nausea and/or Vomiting - Discharge Plan *PRESCRIPTION DRUG MONITORING PROGRAM REVIEWED*: No *COPY OF PRESCRIPTION DRUG MONITORING REPORT IN PATIENT OMAR: No Home Medications: Home Meds Pnv No.95/Ferrous Fum/Folic AC [ Vitamin Tablet] 1 each PO DAILY [History] Docusate Sodium [Colace] 100 mg PO BID PRN cap 05/10/19 [Rx] Ibuprofen [Motrin] 600 mg PO Q6H PRN tablet 05/10/19 [Rx] Patient Handouts: Care After Vaginal Delivery Referrals: Divina Mitchell MD [Primary Care Provider] - (3 weeks for check ) - Discharge Summary/Plan Comment DC Time >30 min.: No - Patient Data Vitals - Most Recent: Last Vital Signs Temp 36.9 C 05/10/19 03:54 Pulse 71 05/10/19 15:16 Resp 15 05/10/19 15:16 BP 113/73 05/10/19 15:16 Pulse Ox 98 05/10/19 15:16 Weight - Most Recent: 74.661 kg I&O - Last 24 hours: Intake & Output 05/10/19 05/10/19 05/11/19 14:59 22:59 06:59 Intake Total 180 0 Balance 180 0 Med Orders - Current: Current Medications Discontinued Medications Acetaminophen (Tylenol) 650 mg PO Q4H PRN PRN Reason: mild pain or fever Last Admin: 05/10/19 08:34 Dose: 650 mg Benzocaine/Menthol (Dermoplast Pain Relief Cosby) 0 gm TOP ASDIRECTED PRN PRN Reason: Perineal Comfort Measure Diphenhydramine HCl (Benadryl) 25 mg IVPUSH Q6H PRN PRN Reason: pruritis Docusate Sodium (Colace) 100 mg PO BID PRN PRN Reason: Constipation Last Admin: 05/10/19 08:39 Dose: 100 mg Ephedrine Sulfate (Ephedrine Sulfate) 5 mg IVPUSH ASDIRECTED PRN PRN Reason: Hypotension Fentanyl (Sublimaze) 100 mcg EPIDUR Q3H PRN PRN Reason: Pain Last Admin: 05/09/19 15:07 Dose: 100 mcg Fentanyl/Bupivacaine HCl (Fentanyl/Bupivacaine/Ns 2 Mcg-0.125% 100 Ml) 100 ml EPIDUR ASDIRECTED PRN PRN Reason: Pain Last Admin: 05/09/19 15:08 Dose: 100 ml Lactated Ringer's (Ringers, Lactated) 1,000 mls @ 100 mls/hr IV ASDIRECTED PAMELA Last Admin: 05/09/19 15:11 Dose: 999 mls/hr Oxytocin/Lactated Ringer's (Pitocin In Lr 10 Units/1,000 Ml) 10 unit in 1,000 mls @ 12 mls/hr IV TITRATE PAMELA; Protocol Last Admin: 05/09/19 19:13 Dose: 500 mls/hr Ibuprofen (Motrin) 600 mg PO Q6H PRN PRN Reason: Mild pain or fever Last Admin: 05/10/19 16:50 Dose: 600 mg Lidocaine/Epinephrine (Xylocaine-Mpf 1.5% W/Epinephrine 1:200,000) 5 ml .ROUTE .STK-MED ONE Stop: 05/09/19 00:01 Lidocaine/Epinephrine (Xylocaine-Mpf 1.5% W/Epinephrine 1:200,000) 5 ml .ROUTE .STK-MED ONE Stop: 05/09/19 00:01 Ondansetron HCl (Zofran) 4 mg IVPUSH Q4H PRN PRN Reason: Nausea/Vomiting Sodium Chloride (Saline Flush) 10 ml FLUSH ASDIRECTED PRN PRN Reason: Keep Vein Open Zachery Kemp (Tucks) 1 pad TOP ASDIRECTED PRN PRN Reason: Perineal Comfort Measure Last Admin: 05/09/19 20:36 Dose: 1 carton
== END 2019-05-10 21:15 | disposition home or self-care (01) | DRG 560 ==
LOC: JD.OB 13:53 → OBSVTOIN 19:10 → JD.OB 19:11
PROVIDERS: ADMIT Obstetrics & Gynecology; ATTEND Obstetrics & Gynecology
PROC: 10E0XZZ Delivery of Products of Conception, External Approach (ICD-10-PCS; principal; 2019-05-09)
PROC: 10907ZC Drainage of Amniotic Fluid, Therapeutic from Products of Conception, Via Natural or Artificial Opening (ICD-10-PCS; 2019-05-09)
PROC: 3E0R3BZ Introduction of Anesthetic Agent into Spinal Canal, Percutaneous Approach (ICD-10-PCS; 2019-05-09)
DX: O69.1XX0 Labor and delivery complicated by cord around neck, with compression, not applicable or unspecified (principal); Z3A.39 39 weeks gestation of pregnancy; Z79.899 Other long term (current) drug therapy; Z37.0 Single live birth
CPT/HCPCS: 36415; 51702; 59025; 59409; 85025; 86592; 86850; 86900; 86901; A9270-GY; J2590; J3010; J7120